=== PATIENT | male | born 1940 | race Caucasian/White ===

== ENCOUNTER 2016-05-27 17:37 | Inpatient (IN) | payer OTHER, BC, MEDICARE ==
[~2016-05-27] VITALS: Ht 172.7 cm; Wt 85.0 kg
[2016-05-27 17:38] VITALS: BP 128/68; PULSE 91; RESP 16; TEMP 99.3; O2SAT 98
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
[2016-05-27] MEDS ORDERED: SODIUM CHLOR 0.9% 1000 ML INJ 1,000 ML IV ONE ×2 (20:30→22:00)
[2016-05-27] MEDS ORDERED: VANCOMYCIN INJ 1,000 MG in SODIUM CHLOR 0.9% 250 ML INJ 250 ML IV ONE (20:30)
[2016-05-27] MEDS ORDERED: PIPERACIL-TAZO 3.375 GM PREMIX 50 ML IV ONE (20:30)
--- NOTE | 2016-05-27 20:30 | RADRPT ---
EXAM DATE/TIME: 05/27/2016 20:08 [facility] COMPARISON: No previous studies available for comparison. INDICATIONS : Fever. MEDICAL HISTORY : Myocardial infarction. SURGICAL HISTORY : Coronary artery stent. ENCOUNTER: Initial ACUITY: 1 week PAIN SCORE: 0/10 LOCATION: Bilateral chest FINDINGS: A single view of the chest demonstrates the lungs to be symmetrically aerated without evidence of mas s, infiltrate or effusion. The cardiomediastinal contours are unremarkable. Osseous structures are intact. CONCLUSION: No acute disease. Mir Suarez MD FACR on May 27, 2016 at 20:28 Board Certified Radiologist. This report was verified electronically.
[2016-05-27 20:50] LABS: AUTOMATED NEUTROPHIL # 10.9 TH/MM3 (1.8-7.7); BASOPHIL % 0.3 % (0.0-2.0); EOSINOPHIL % 0.2 % (0.0-4.0); HEMATOCRIT 38.6 % (39.0-51.0); LYMPH % 9.9 % (9.0-44.0); LYMPHOCYTE # 1.3 TH/MM3 (1.0-4.8); MEAN CELL VOLUME 73.2 FL (80.0-100.0); MEAN CORPUSCULAR HEMOGLOBIN 23.5 PG (27.0-34.0); MEAN CORPUSCULAR HGB CONC 32.1 % (32.0-36.0); MONO % 8.2 % (0.0-8.0); NEUT % 81.4 % (16.0-70.0); PLATELET COUNT 276 TH/MM3 (150-450); RED BLOOD COUNT 5.28 MIL/MM3 (4.50-5.90); RED CELL DISTRIBUTION WIDTH 16.9 % (11.6-17.2); WHITE BLOOD COUNT 13.4 TH/MM3 (4.0-11.0)
[2016-05-27 20:51] LABS: HEMO FLAGS AUTO DIFF
[2016-05-27 21:08] LABS: APTT (PATIENT) 27.4 SEC (24.3-30.1); PROTHROMBIN TIME - PATIENT 11.3 SEC (9.8-11.6)
[2016-05-27 21:11] LABS: ANION GAP 9 MEQ/L (5-15); AST (GOT) 24 U/L (15-37); BLOOD UREA NITROGEN 26 MG/DL (7-18); CHLORIDE 98 MEQ/L (98-107); GLOMERULAR FILTRATION RATE 37 ML/MIN (>89); MAGNESIUM 2.1 MG/DL (1.5-2.5); POTASSIUM 3.8 MEQ/L (3.5-5.1); SODIUM (NA) 134 MEQ/L (136-145)
[2016-05-27 21:14] LABS: ALKALINE PHOSPHATASE 98 U/L (45-117); ALT (GPT) 38 U/L (12-78); TOTAL BILIRUBIN ADULT 0.7 MG/DL (0.2-1.0)
[2016-05-27 21:21] LABS: OVALOCYTES 1+ (NORMAL); PLATELET ESTIMATE SMEAR NORMAL (NORMAL); PLATELET MORPHOLOGY NORMAL (NORMAL); SCAN/DIFF AUTO DIFF CONFIRMED
--- NOTE | 2016-05-27 21:58 | PD.CONS ---
HPI Service Urology Consult Requested By Reason for Consult Artificial urinary sphincter Primary Care Physician Unknown Diagnosis: History of Present Illness 76yo male with hx of prostate cancer s/p prostatectomy with artificial urinary sphincter in place now with fevers. Patient recently had a urinary sphincter placed in Mar 2016. He had been doing well until recently where he was evaluated by [facility] and found to have fevers and scrotal pain/ discomfort, at which point he was referred to [place] ED due to concern for possible implant infection. Patient recently had his sphincter activated a few weeks ago. Patient reports fevers at home with occasional blood in his urine. Denies any N/V. He is able to cycle the device well and provide a urine sample. As there was concern for possible infection of the implant his sphincter was deactivated and he was started on broad spectrum antibiotics. Review of Systems ROS Limitations: Clinical Condition Constitutional: COMPLAINS OF: Fever Endocrine: DENIES: Polyuria Eyes: DENIES: Blurred vision Ears, nose, mouth, throat: DENIES: Hearing loss Respiratory: DENIES: Cough Cardiovascular: DENIES: Chest pain Gastrointestinal: COMPLAINS OF: Abdominal pain Genitourinary: COMPLAINS OF: Hematuria Musculoskeletal: DENIES: Joint pain Integumentary: DENIES: Rash Hematologic/lymphatic: DENIES: Bruising Immunologic/allergic: DENIES: Eczema Neurologic: DENIES: Abnormal gait Psychiatric: DENIES: Anxiety Except as stated in HPI: all other systems reviewed are Neg Past Family Social History Past Medical History htn dm cad s/p stent- 2005 ckd- Dr Álvarez at [place] is his kidney prostate CA- diagnosed 2015, s/p prostectomy and lymph nodes removal- no chemo, no radiation seeds - DR REYNA- at [place] ([facility]) GERD Past Surgical History prostatectomy L3-L4 fusion rotator cuff sx Reported Medications Reported Meds & Active Scripts Active Reported Cozaar (Losartan Potassium) 25 Mg Tab 25 Mg PO DAILY Aspirin Low Dose (Aspirin) 81 Mg Chew 81 Mg DAILY Crestor (Rosuvastatin Calcium) 20 Mg Tab 20 Mg PO HS Glipizide 5 Mg Tab 2.5 Mg PO DAILY Take 30 minutes before a meal Metformin (Metformin HCl) 500 Mg Tab 500 Mg PO BIDPC With meals Allergies: Coded Allergies: No Known Allergies (Verified , 05/27/16) Active Ordered Medications Current Medications Medications (Trade) Dose Ordered Sig/Percy Route Start Time Stop Time Status Last Admin (NS 1000 ml Inj) 1,000 ml @ 100 mls/hr Q10H IV 05/27/16 20:00 05/28/16 08:42 (NS Flush) 2 ml UNSCH PRN IV FLUSH 05/27/16 22:15 (NS Flush) 2 ml BID IV FLUSH 05/28/16 09:00 Naloxone HCl 0.4 mg 0.4 mg UNSCH PRN IV 05/27/16 22:15 Pharmacy Profile Note 0 ml @ 0 mls/hr UNSCH OTHER 05/27/16 22:15 (Zosyn 2.25 Gm Premix) 50 ml @ 100 mls/hr Q6H IV 05/28/16 03:00 05/28/16 20:39 (D50w (Vial) Inj) 25 ml UNSCH PRN IV PUSH 05/28/16 02:30 (Glucagon Inj) 1 mg UNSCH PRN OTHER 05/28/16 02:30 Losartan Potassium 25 mg 25 mg DAILY PO 05/28/16 09:00 05/28/16 08:37 (Vancomycin Inj/ NS 500 ml Inj) 517.5 ml @ 250 mls/hr Q24H IV 05/28/16 12:00 05/28/16 12:31 Miscellaneous Information SPECIFIC LAB TO BE DRAWN:VANCOMYCIN TROUGH DATE TO... ONCE ONCE .XX 05/30/16 11:45 05/30/16 11:46 Family History mother and father with dm, htn younger brother with prostate ca Social History used to smoke , quit 1970s, never a heavy smoker social drinker lives with and grandson, still drives Physical Exam Vital Signs Date Time Temp Pulse Resp B/P Pulse Ox O2 Delivery O2 Flow Rate FiO2 05/27/16 19:59 79 14 97 Room Air 05/27/16 17:38 99.3 91 16 128/68 98 Physical Exam GENERAL: This is a well-nourished, well-developed patient, in no apparent distress. SKIN: No rashes, ecchymoses or lesions. Cool and dry. HEAD: Atraumatic. Normocephalic. EYES: Extraocular motions intact. No scleral icterus. No injection or drainage. ENT: Nose without bleeding, purulent drainage. Airway patent. NECK: Trachea midline. No JVD or lymphadenopathy. CARDIOVASCULAR: Normal pulses RESPIRATORY: nonlabored, equal chest rise GASTROINTESTINAL: Abdomen soft, non-tender, nondistended. : Bilateral descended testis, no masses, nontender palpable pump noted within the scrotum, Nontender cuff in place. No obvious erythema or clear evidence of infection noted MUSCULOSKELETAL: Extremities without clubbing, cyanosis, or edema. NEUROLOGICAL: Awake and alert. Motor and sensory grossly within normal limits. Normal speech. Lab results reviewed: Yes Laboratory Tests Test 05/27/16 20:25 White Blood Count 13.4 Red Blood Count 5.28 Hemoglobin 12.4 Hematocrit 38.6 Mean Corpuscular Volume 73.2 Mean Corpuscular Hemoglobin 23.5 Mean Corpuscular Hemoglobin 32.1 Concent Red Cell Distribution Width 16.9 Platelet Count 276 Mean Platelet Volume 8.3 Neutrophils (%) (Auto) 81.4 Lymphocytes (%) (Auto) 9.9 Monocytes (%) (Auto) 8.2 Eosinophils (%) (Auto) 0.2 Basophils (%) (Auto) 0.3 Neutrophils # (Auto) 10.9 Lymphocytes # (Auto) 1.3 Monocytes # (Auto) 1.1 Eosinophils # (Auto) 0.0 Basophils # (Auto) 0.0 CBC Comment AUTO DIFF Differential Comment AUTO DIFF CONFIRMED Platelet Estimate NORMAL Platelet Morphology Comment NORMAL Ovalocytes 1+ Prothrombin Time 11.3 Prothromb Time International 1.0 Ratio Activated Partial 27.4 Thromboplast Time Sodium Level 134 Potassium Level 3.8 Chloride Level 98 Carbon Dioxide Level 27.0 Anion Gap 9 Blood Urea Nitrogen 26 Creatinine 1.80 Estimat Glomerular Filtration 37 Rate Random Glucose 156 Lactic Acid Level 2.2 Calcium Level 9.0 Magnesium Level 2.1 Total Bilirubin 0.7 Aspartate Amino Transf 24 (AST/SGOT) Alanine Aminotransferase 38 (ALT/SGPT) Alkaline Phosphatase 98 C-Reactive Protein 11.00 Total Protein 8.2 Albumin 3.7 Lipase 111 Blood Type O POSITIVE Antibody Screen NEGATIVE Blood Bank Comment Date/Time Procedure Status Source Growth 05/27/16 20:25 Aerobic Blood Culture Received Blood Peripheral Pending 05/27/16 20:25 Anaerobic Blood Culture Received Blood Peripheral Pending Result Diagram: 05/27/16202405/27/162024 Personally reviewed images: Yes Imaging Last 72 hours Impressions Chest X-Ray 05/27/161999 Signed Impressions: Service Date/Time: Friday, May 27, 2016 20:08 - CONCLUSION: No acute disease. Mir Suarez MD FACR Pelvis CT 05/27/16 0000 Signed Impressions: Service Date/Time: Saturday, May 28, 2016 00:32 - CONCLUSION: 1. Diverticulosis without diverticulitis. 2. Penile prosthesis. 3. Umbilical hernia containing loops of small bowel without fundus regulation or obstruction. Naseem Gutiérrez MD Last Impressions Chest X-Ray 05/27/161999 Signed Impressions: Service Date/Time: Friday, May 27, 2016 20:08 - CONCLUSION: No acute disease. Mir Suarez MD FACR Assessment and Plan Problem List: (1) Urinary tract infection ICD Code: N39.0 Status: Acute (2) Sepsis ICD Code: A41.9 Status: Acute Assessment and Plan -Concern for possible sphincter infection vs erosion, however no obvious infection noted -Continue broad spectrum Abx -CT pelvis without any obvious abnormalities noted -Sphincter de-activated at bedside -Will follow closely Problem Qualifiers (1) Urinary tract infection: Qualified Code: N39.0 - Urinary tract infection without hematuria, site unspecified (2) Sepsis: Qualified Code: A41.9 - Sepsis, due to unspecified organism Ruddy Wheeler MD May 27, 2016 21:58
[2016-05-27] MEDS: SODIUM CHLOR 0.9% 1000 ML INJ 1,000 ML IV SCH (22:14)
[2016-05-27] MEDS ORDERED: SODIUM CHLORIDE 0.9% FLUSH 10 ML FLUSH IV FLUSH PRN (22:15)
[2016-05-27] MEDS ORDERED: NALOXONE HCL 0.4 MG/ML AMP IV PRN (22:15)
[2016-05-27] MEDS ORDERED: Vancomycin Consult Pharmacy 1 EA OTHER SCH (22:15)
[2016-05-27 22:40] LABS: LACTIC ACID GHOST NOT REPORTABLE
[2016-05-27] MEDS ORDERED: DIATRIZOATE MEGLUM/DIATRIZOATE SOD 9 ML CUP ONE (22:46)
[2016-05-27] MEDS ORDERED: ACETAMINOPHEN 325 MG TAB PO ONE (23:00)
[2016-05-27 23:12] LABS: BACTERIA, URINE RARE /hpf; BLOOD, URINE SMALL (NEG); COMMENT (UR) CULTURE INDICATED; CULTURE IF INDICATED CULTURE INDICATED; GLUCOSE,URINE NEG (NEG); KETONE, URINE NEG (NEG); MUCUS URINE FEW /lpf (OCC); NITRITE,URINE NEG (NEG); PH, URINE 5.5 (5.0-8.5); SQUAMOUS EPITHELIAL CELL URINE 1 /hpf (0-5); URINE COLOR YELLOW (YELLW/STRAW)
[2016-05-28] VITALS (9 sets, daily range): BP systolic 116–129; BP diastolic 59–68; PULSE 62–75; RESP 16–20; TEMP 97.8–99.8; O2SAT 95–99
--- NOTE | 2016-05-28 00:57 | RADRPT ---
EXAM DATE/TIME: 05/28/2016 00:32 [facility] COMPARISON: No previous studies available for comparison. INDICATIONS : Fever, post op artificial sphincter four days ago, rectal bleeding. ORAL CONTRAST: Prescribed oral contrast ingested. RADIATION DOSE: 13.57 CTDIvol (mGy) MEDICAL HISTORY : Cardiovascular disease. diabetes, hernia SURGICAL HISTORY : artificial sphincter ENCOUNTER: Initial ACUITY: 4 - 6 days PAIN SCALE: 8/10 LOCATION: pelvis TECHNIQUE: Volumetric scanning of the pelvis was performed. Using automated exposure control and adjustment of the mA and/or kV according to patient size, radiation dose was kept as low as reasonably achievable t o obtain optimal diagnostic quality images. FINDINGS: BOWEL/MESENTERY: Diverticulosis without diverticulitis. Small umbilical hernia containing loops of small bowel. No sig ns of strangulation or obstruction. BLADDER: There is no wall thickening or mass. RETROPERITONEUM: There is no aneurysm or lymphadenopathy. REPRODUCTIVE: Penile prosthesis noted. Postsurgical changes with prostatectomy. INGUINAL: There is no lymphadenopathy or hernia. MUSCULOSKELETAL: There are degenerative changes lower lumbar spine. CONCLUSION: 1. Diverticulosis without diverticulitis. 2. Penile prosthesis. 3. Umbilical hernia containing loops of small bowel without fundus regulation or obstruction. Naseem Gutiérrez MD on May 28, 2016 at 0:52 Board Certified Radiologist. This report was verified electronically.
[2016-05-28] MEDS ORDERED: PIPERACIL-TAZO 4.5 GM PREMIX 100 ML IV SCH (02:00)
--- NOTE | 2016-05-28 02:15 | HHI.HP ---
HPI Service [facility] Primary Care Physician Unknown Admission Diagnosis Post op infection, sepsis Diagnoses: Chief Complaint: Fever Travel History International Travel<30 Days: No Contact w/Intl Traveler <30 Da: No Traveled to Known Affected Are: No Sepsis Criteria Severe Sepsis (+one): Lactate >2 History of Present Illness History from patient, your physician for medication, and review of medical records. Patient reported that he came to the hospital because he was having fever for past one week. States he was also seen blood in his urine. He reports a urinary burning as well. Denies any cough/upper respiratory symptoms. Denies any nausea/vomiting/diarrhea/black stools or red stool. Denies any recent chest pain/shortness of breath/syncopal episodes. Patient reports that he has had prostatectomy previously for prostate cancer and had artificial sphincter placed on March 25, 2016. He reports this artificial sphincter was activated 2 weeks ago. He is a diabetic. He states the first week, he was quite asymptomatic. Only starting the second week he started having fever and urinary burning. He saw his urologist office today and was told to come to the hospital for suspected postop infection. Review of Systems Except as stated in HPI: all other systems reviewed are Neg Past Family Social History Past Medical History htn dm cad s/p stent- 2005 ckd- Dr Álvarez at [facility] is his kidney prostate CA- diagnosed 2015, s/p prostectomy and lymph nodes removal- no chemo, no radiation seeds - DR REYNA- at [facility] ([facility]) GERD Past Surgical History prostatectomy L3-L4 fusion rotator cuff sx Reported Medications per patient: metformin 500mg bid glipzide 2.5 mg once a day losartan 25mg once a day asa 81mg po daily crestor 20mg qhs Allergies: Coded Allergies: No Known Allergies (Verified , 05/27/16) Family History mother and father with dm, htn younger brother with prostate ca Social History used to smoke , quit 1970s, never a heavy smoker social drinker lives with and grandson, still drives Physical Exam Vital Signs Vital Signs Date Time Temp Pulse Resp B/P Pulse Ox O2 Delivery O2 Flow Rate FiO2 05/28/16 00:12 72 05/28/16 00:09 99.8 75 19 116/59 95 05/27/16 19:59 79 14 97 Room Air 05/27/16 17:38 99.3 91 16 128/68 98 Physical Exam GENERAL: This is a well-nourished, well-developed patient, in no apparent distress. SKIN: No rashes, ecchymoses or lesions. Cool and dry. HEAD: Atraumatic. Normocephalic. No temporal or scalp tenderness. EYES: No scleral icterus. No injection or drainage. ENT: Nose without bleeding, purulent drainage or septal hematoma. Airway patent. NECK: Trachea midline. No JVD . CARDIOVASCULAR: Regular rate and rhythm without murmurs, gallops, or rubs. RESPIRATORY: Clear to auscultation. Breath sounds equal bilaterally. No wheezes , rales, or rhonchi. GASTROINTESTINAL: Abdomen soft, non-tender, nondistended. No guarding. MUSCULOSKELETAL: Extremities without clubbing, cyanosis, or edema. No calf tenderness. NEUROLOGICAL: Awake and alert. Motor and sensory grossly within normal limits. Normal speech. Laboratory Laboratory Tests Test 05/27/16 05/27/16 20:25 22:59 White Blood Count 13.4 Red Blood Count 5.28 Hemoglobin 12.4 Hematocrit 38.6 Mean Corpuscular Volume 73.2 Mean Corpuscular Hemoglobin 23.5 Mean Corpuscular Hemoglobin 32.1 Concent Red Cell Distribution Width 16.9 Platelet Count 276 Mean Platelet Volume 8.3 Neutrophils (%) (Auto) 81.4 Lymphocytes (%) (Auto) 9.9 Monocytes (%) (Auto) 8.2 Eosinophils (%) (Auto) 0.2 Basophils (%) (Auto) 0.3 Neutrophils # (Auto) 10.9 Lymphocytes # (Auto) 1.3 Monocytes # (Auto) 1.1 Eosinophils # (Auto) 0.0 Basophils # (Auto) 0.0 CBC Comment AUTO DIFF Differential Comment AUTO DIFF CONFIRMED Platelet Estimate NORMAL Platelet Morphology Comment NORMAL Ovalocytes 1+ Prothrombin Time 11.3 Prothromb Time International 1.0 Ratio Activated Partial 27.4 Thromboplast Time Sodium Level 134 Potassium Level 3.8 Chloride Level 98 Carbon Dioxide Level 27.0 Anion Gap 9 Blood Urea Nitrogen 26 Creatinine 1.80 Estimat Glomerular Filtration 37 Rate Random Glucose 156 Lactic Acid Level 2.2 1.2 Calcium Level 9.0 Magnesium Level 2.1 Total Bilirubin 0.7 Aspartate Amino Transf 24 (AST/SGOT) Alanine Aminotransferase 38 (ALT/SGPT) Alkaline Phosphatase 98 C-Reactive Protein 11.00 Total Protein 8.2 Albumin 3.7 Lipase 111 Blood Type O POSITIVE Antibody Screen NEGATIVE Blood Bank Comment Urine Color YELLOW Urine Turbidity CLEAR Urine pH 5.5 Urine Specific [place] 1.018 Urine Protein 30 Urine Glucose (UA) NEG Urine Ketones NEG Urine Occult Blood SMALL Urine Nitrite NEG Urine Bilirubin NEG Urine Urobilinogen LESS THAN 2.0 Urine Leukocyte Esterase MOD Urine RBC 12 Urine WBC 21 Urine Squamous Epithelial 1 Cells Urine Bacteria RARE Urine Mucus FEW Microscopic Urinalysis Comment CULTURE INDICATED Date/Time Procedure Status Source Growth 05/27/16 22:59 Urine Culture Received Urine Random Urine Pending 05/27/16 20:25 Aerobic Blood Culture Received Blood Peripheral Pending 05/27/16 20:25 Anaerobic Blood Culture Received Blood Peripheral Pending Result Diagram: 05/27/16202405/27/162024 Imaging Last 48 hours Impressions Chest X-Ray 05/27/161999 Signed Impressions: Service Date/Time: Friday, May 27, 2016 20:08 - CONCLUSION: No acute disease. Mir Suarez MD FACR Pelvis CT 05/27/16 0000 Signed Impressions: Service Date/Time: Saturday, May 28, 2016 00:32 - CONCLUSION: 1. Diverticulosis without diverticulitis. 2. Penile prosthesis. 3. Umbilical hernia containing loops of small bowel without fundus regulation or obstruction. Naseem Gutiérrez MD Assessment and Plan Problem List: (1) Urinary tract infection ICD Code: N39.0 Status: Acute Assessment and Plan Impression: Postop fever UTI Renal insufficiencylikely chronic. Patient sees a stress test technician at [facility]. He does not know his baseline GFR though. Has long-standing hypertension/ diabetes. Leukocytosis with left shift Hematuriamild per description. Will follow-up. Likely from UTI and instrumentation. htn dm cad s/p stent- 2005 ckd- Dr Álvarez at [facility] is his kidney prostate CA- diagnosed 2015, s/p prostectomy and lymph nodes removal- no chemo, no radiation seeds - DR REYNA- at [facility] ([facility]) GERD Plan: Will follow-up urine culture results. Patient was evaluated by urologist in ER. His artificial sphincter was deactivated. We'll follow-up recommendations. CT pelvisreviewed personally. No evidence of abscess/diverticulitis. Patient was given vancomycin and Zosyn in ER. We'll continue same regimen given that he had recent instrumentation. We'll adjust antibiotics based on culture results. Hold oral hypoglycemics. We'll monitor fingersticks and cover with sliding scale coverage. Resume his other home meds. DVT prophylaxiswith SCD. Discussed Condition With Patient, ER physician, patient's nurse Problem Qualifiers (1) Urinary tract infection: Qualified Code: N39.0 - Urinary tract infection without hematuria, site unspecified Rico Rincon MD May 28, 2016 02:15
[2016-05-28] MEDS ORDERED: DEXTROSE 50% IN WATER 50 ML VIAL(D50) IV PUSH PRN (02:30)
[2016-05-28] MEDS ORDERED: GLUCAGON 1 MG/ML VIAL OTHER PRN (02:30)
[2016-05-28] MEDS: PIPERACIL-TAZO 2.25 GM PREMIX 50 ML IV SCH ×4 (03:02→20:39)
[2016-05-28] MEDS: SODIUM CHLOR 0.9% 1000 ML INJ 1,000 ML IV SCH ×2 (06:00→08:42)
[2016-05-28] MEDS: INSULIN ASPART SUPPLEMENTAL SCALE SQ SCH ×4 (06:17→20:43)
[2016-05-28 07:59] LABS: AUTOMATED NEUTROPHIL # 6.1 TH/MM3 (1.8-7.7); BASOPHIL % 0.3 % (0.0-2.0); EOSINOPHIL # 0.1 TH/MM3 (0-0.4); EOSINOPHIL % 1.5 % (0.0-4.0); LYMPH % 17.1 % (9.0-44.0); LYMPHOCYTE # 1.5 TH/MM3 (1.0-4.8); MEAN CELL VOLUME 72.2 FL (80.0-100.0); MEAN CORPUSCULAR HEMOGLOBIN 24.1 PG (27.0-34.0); MEAN CORPUSCULAR HGB CONC 33.4 % (32.0-36.0); MONO % 11.2 % (0.0-8.0); NEUT % 69.9 % (16.0-70.0); PLATELET COUNT 251 TH/MM3 (150-450); RED BLOOD COUNT 4.29 MIL/MM3 (4.50-5.90); RED CELL DISTRIBUTION WIDTH 17.2 % (11.6-17.2); WHITE BLOOD COUNT 8.7 TH/MM3 (4.0-11.0)
[2016-05-28 08:01] LABS: HEMO FLAGS AUTO DIFF
[2016-05-28] MEDS: LOSARTAN 25 MG TAB PO SCH (08:37)
[2016-05-28] MEDS: SODIUM CHLORIDE 0.9% FLUSH 10 ML FLUSH IV FLUSH SCH ×2 (08:40→20:40)
[2016-05-28 08:46] LABS: BICARBONATE 25.6 MEQ/L (21.0-32.0); POTASSIUM 3.5 MEQ/L (3.5-5.1)
[2016-05-28 08:49] LABS: BANDS 7 % (0-6); EOSINOPHILS 1 % (0-4); PLATELET ESTIMATE SMEAR NORMAL (NORMAL); PLATELET MORPHOLOGY NORMAL (NORMAL); POLYS (SEG NEUTROPHILS) 62 % (16-70); SCAN/DIFF FINAL DIFF MANUAL; WBC DIFF SAMPLE 100
[2016-05-28 08:50] LABS: OVALOCYTES 1+ (NORMAL)
[2016-05-28] MEDS ORDERED: METF500T PO (10:13)
[2016-05-28] MEDS ORDERED: ROSU20 PO (10:13)
[2016-05-28] MEDS ORDERED: GLIP5TAB8 PO (10:13)
[2016-05-28] MEDS ORDERED: COZA25TA PO (10:14)
[2016-05-28] MEDS ORDERED: ASPI81CH37 (10:14)
--- NOTE | 2016-05-28 11:41 | EKG ---
Date Performed: 05/27/2016 Time Performed: 21:09:41 PTAGE: 76 years EKG: Sinus rhythm NONSPECIFIC T-WAVE ABNORMALITY BORDERLINE ECG PREVIOUS TRACING : 10/30/2004 05.39 DOCTOR: Kit Adair Interpretating Date/Time 05/28/2016 11:36:40
[2016-05-28] MEDS: VANCOMYCIN INJ 1,750 MG in SODIUM CHLORID 0.9% 500 ML INJ 500 ML IV SCH (12:31)
--- NOTE | 2016-05-28 19:20 | HHI.PR ---
Addendum to Inpatient Note Addendum Reason: Additional Documentation Additional Information Patient states feels better. Denies cp/sob. no diarrhea. No further hematuria. Patient is AAOx3 nad, lungs clear, abdomen soft. Impression. 1. Sepsis secondary to urinary tract infection 2. Acute kidney injury on chronic kidney disease stage III 3. Hematuria - resolved 4. Diabetes mellitus. 5. Hypertension 6. Postop fever. 7. Low mcv anemia Sepsis present on admission, heart rate more than 90 and leukocytosis with a positive UA. Follow-up urinary blood cultures. Blood cultures negative 1. Urine culture pending. Continue broad-spectrum IV antibiotics with IV Zosyn IV vancomycin Urology following Continue SSI with insulin NovoLog and continue to monitor Accu-Cheks. Sugars seem to be stable. Continue Losartan for hypertension which seems to be stable. check iron studies, monitor hemoglobin which dropped down to 10k from 12k, check stool guaiac Jevon Condon MD May 28, 2016 19:20
[2016-05-29] VITALS (7 sets, daily range): BP systolic 136–176; BP diastolic 67–80; PULSE 60–65; RESP 16–20; TEMP 97.6–98.3; O2SAT 97–100
[2016-05-29] MEDS: SODIUM CHLOR 0.9% 1000 ML INJ 1,000 ML IV SCH ×3 (02:27→22:21)
[2016-05-29] MEDS: PIPERACIL-TAZO 2.25 GM PREMIX 50 ML IV SCH ×4 (02:30→22:21)
[2016-05-29 05:58] LABS: AUTOMATED NEUTROPHIL # 4.5 TH/MM3 (1.8-7.7); BASOPHIL % 0.4 % (0.0-2.0); EOSINOPHIL # 0.4 TH/MM3 (0-0.4); EOSINOPHIL % 5.5 % (0.0-4.0); HEMATOCRIT 30.8 % (39.0-51.0); LYMPH % 19.5 % (9.0-44.0); LYMPHOCYTE # 1.4 TH/MM3 (1.0-4.8); MEAN CELL VOLUME 72.4 FL (80.0-100.0); MEAN CORPUSCULAR HEMOGLOBIN 24.1 PG (27.0-34.0); MEAN CORPUSCULAR HGB CONC 33.3 % (32.0-36.0); MONO % 12.8 % (0.0-8.0); NEUT % 61.8 % (16.0-70.0); PLATELET COUNT 267 TH/MM3 (150-450); RED BLOOD COUNT 4.26 MIL/MM3 (4.50-5.90); RED CELL DISTRIBUTION WIDTH 16.9 % (11.6-17.2); WHITE BLOOD COUNT 7.2 TH/MM3 (4.0-11.0)
[2016-05-29 06:17] LABS: HEMO FLAGS AUTO DIFF
[2016-05-29 06:19] LABS: ALKALINE PHOSPHATASE 74 U/L (45-117); ALT (GPT) 38 U/L (12-78); ANION GAP 9 MEQ/L (5-15); AST (GOT) 26 U/L (15-37); BICARBONATE 25.6 MEQ/L (21.0-32.0); BLOOD UREA NITROGEN 21 MG/DL (7-18); CHLORIDE 106 MEQ/L (98-107); FERRITIN 104 NG/ML (26-388); GLOMERULAR FILTRATION RATE 50 ML/MIN (>89); MAGNESIUM 2.1 MG/DL (1.5-2.5); POTASSIUM 3.7 MEQ/L (3.5-5.1); SODIUM (NA) 141 MEQ/L (136-145); TOTAL BILIRUBIN ADULT 0.5 MG/DL (0.2-1.0); TRANSFERRIN IRON PROFILE 222 MG/DL (200-360)
[2016-05-29] MEDS: INSULIN ASPART SUPPLEMENTAL SCALE SQ SCH ×4 (06:35→22:23)
[2016-05-29 07:42] LABS: OVALOCYTES 1+ (NORMAL); PLATELET ESTIMATE SMEAR NORMAL (NORMAL); PLATELET MORPHOLOGY NORMAL (NORMAL); SCAN/DIFF AUTO DIFF CONFIRMED
--- NOTE | 2016-05-29 08:25 | HHI.PR ---
Subjective Remarks Follow up for complicated UTI, fevers, hematuria. The patient has been able to urinate but experiences pressure and still feels he has to force it. Denies any fevers/chills overnight. Denies abdominal pain. No further hematuria. He has no other medical complaints at this time. The patient had artificial sphincter placed 03/[address] Carlin, then activated on 05/13, now deactivated by Dr. Wheeler. Objective Vitals Vital Signs Date Time Temp Pulse Resp B/P Pulse Ox O2 Delivery O2 Flow Rate FiO2 05/29/16 07:32 97.9 65 16 176/80 99 05/29/16 03:58 97.6 60 20 149/72 98 05/29/16 00:44 98.3 64 18 145/70 99 05/28/16 20:00 66 05/28/16 19:33 98.2 68 18 122/63 98 05/28/16 15:29 98.6 67 20 120/64 98 05/28/16 11:31 97.8 69 18 123/68 98 I/O 05/28/16 05/28/16 05/28/16 05/29/16 05/29/16 05/29/16 07:00 15:00 23:00 07:00 15:00 23:00 Intake Total 100 ml 200 ml Output Total 600 ml 322 ml Balance -500 ml 200 ml -322 ml Intake IV Total 100 ml 200 ml Output Urine Total 600 ml 322 ml Result Diagram: 05/29/16 0516 05/29/16 0516 Imaging Last Impressions Chest X-Ray 05/27/161999 Signed Impressions: Service Date/Time: Friday, May 27, 2016 20:08 - CONCLUSION: No acute disease. Mir Suarez MD FACR Pelvis CT 05/27/16 0000 Signed Impressions: Service Date/Time: Saturday, May 28, 2016 00:32 - CONCLUSION: 1. Diverticulosis without diverticulitis. 2. Penile prosthesis. 3. Umbilical hernia containing loops of small bowel without fundus regulation or obstruction. Naseem Gutiérrez MD Objective Remarks GENERAL: Well-nourished, well-developed male patient in [facility]. SKIN: Warm and dry. No rash. HEENT: Normocephalic. Atraumatic. Pupils equal and round. Mucous membranes pink and moist. NECK: Supple. Trachea midline. CARDIOVASCULAR: Regular rate and rhythm. S1, S2 noted. No murmur appreciated. RESPIRATORY: No accessory muscle use. Clear to auscultation. Breath sounds equal bilaterally. GASTROINTESTINAL: Abdomen soft, non-tender, nondistended. Normoactive bowel sounds x4. GENITOURINARY: internal artificial sphincter device in place. MUSCULOSKELETAL: No obvious deformities. Extremities without clubbing, cyanosis , or edema. NEUROLOGICAL: Awake and alert. No obvious cranial nerve deficits. Motor grossly within normal limits. Normal speech. PSYCHIATRIC: Appropriate mood and affect; insight and judgment normal. Medications and IVs Current Medications Medications (Trade) Dose Ordered Sig/Percy Route Start Time Stop Time Status Last Admin (NS 1000 ml Inj) 1,000 ml @ 100 mls/hr Q10H IV 05/27/16 20:00 05/29/16 02:27 (NS Flush) 2 ml UNSCH PRN IV FLUSH 05/27/16 22:15 (NS Flush) 2 ml BID IV FLUSH 05/28/16 09:00 Naloxone HCl 0.4 mg 0.4 mg UNSCH PRN IV 05/27/16 22:15 Pharmacy Profile Note 0 ml @ 0 mls/hr UNSCH OTHER 05/27/16 22:15 (Zosyn 2.25 Gm Premix) 50 ml @ 100 mls/hr Q6H IV 05/28/16 03:00 05/29/16 02:30 (D50w (Vial) Inj) 25 ml UNSCH PRN IV PUSH 05/28/16 02:30 (Glucagon Inj) 1 mg UNSCH PRN OTHER 05/28/16 02:30 Losartan Potassium 25 mg 25 mg DAILY PO 05/28/16 09:00 05/28/16 08:37 (Vancomycin Inj/ NS 500 ml Inj) 517.5 ml @ 250 mls/hr Q24H IV 05/28/16 12:00 05/28/16 12:31 Miscellaneous Information SPECIFIC LAB TO BE DRAWN:VANCOMYCIN TROUGH DATE TO... ONCE ONCE .XX 05/30/16 11:45 05/30/16 11:46 Urinary Catheter: No Vascular Central Line Catheter: No A/P Problem List: (1) Urinary tract infection ICD Code: N39.0 Status: Acute Assessment and Plan 76-year-old male with history of diabetes, hypertension, CKD, GERD, CAD with stent, prostate cancer s/p prostatectomy, lymph node resection, artificial sphincter placement, presents with dysuria, fever 1 week and hematuria. Sepsis secondary to Complicated UTI: +leukocytosis WBC 13.4K, tachycardia HR 90s. with MICHELLE and artificial sphincter placed 2/ by Dr. Carlin. Continue broad- spectrum antibiotics with IV Zosyn, IV vancomycin. Urine culture with gram positive davonte. Blood cultures with NGTD. Urologist Dr. Carlin following. Infectious disease consulted for antibiotic recommendations. Acute kidney injury on chronic kidney disease stage III: likely secondary to urinary retention with device. Given IVF. Artificial sphincter deactivated by urology. Renal function improving, Cr 1.38. Hematuria: UA with small occult blood. Currently hematuria resolved. Monitor. Diabetes mellitus: Continue Accu-Cheks and cover with SSI. Blood glucose fairly well controlled. Hypertension: Continue Losartan for hypertension which seems to be stable. Microcytic anemia: iron studies consistent with iron deficiency. Monitor hemoglobin, dropped from 12.4 --> 10.2, likely hemodilutional with IVF. Check stool guaiac. Outpatient f/up with GI if hemoccult positive. DVT Prophylaxis: SCDs Written by Nadya Peña, acting as scribe for Dr. Martinez on 05/29/16 at 08:19. All or portions of this note were transcribed by DWAIN Ro. I , Dr. Doroteo Martinez personally performed the history, physical exam, and medical decision making; and confirmed the accuracy of the information in the transcribed note. Authenticated by Dr. Doroteo Martinez on 05/30/16 at 00:05. Discharge Planning Possible discharge today after antibiotic recommendations by ID. Outpatient f/ up with urology. Repeat BMP in 1 week. Problem Qualifiers (1) Urinary tract infection: Qualified Code: N39.0 - Urinary tract infection without hematuria, site unspecified Nadya Peña PA-C May 29, 2016 08:25 Andres Martinez DO May 30, 2016 00:05
[2016-05-29] MEDS: SODIUM CHLORIDE 0.9% FLUSH 10 ML FLUSH IV FLUSH SCH ×2 (08:27→22:21)
[2016-05-29] MEDS: LOSARTAN 25 MG TAB PO SCH (08:27)
--- NOTE | 2016-05-29 11:09 | HHI.PR ---
Subjective Patient symptoms today feel much better, no longer febrile Objective Vital Signs Vital Signs Date Time Temp Pulse Resp B/P Pulse Ox O2 Delivery O2 Flow Rate FiO2 05/29/16 07:32 97.9 65 16 176/80 99 05/29/16 03:58 97.6 60 20 149/72 98 05/29/16 00:44 98.3 64 18 145/70 99 05/28/16 20:00 66 05/28/16 19:33 98.2 68 18 122/63 98 05/28/16 15:29 98.6 67 20 120/64 98 05/28/16 11:31 97.8 69 18 123/68 98 Intake & Output 05/29/16 05/29/16 07:00 19:00 Intake Total 200 ml Output Total 322 ml Balance -122 ml Intake IV Total 200 ml Output Urine Total 322 ml Result Diagram: 05/29/1651505/29/1616 Objective Remarks AUS cycled several times no evidence of erythema, induration, tenderness I don' t think the AUS is infected but could be eroded into the urethra -- won't know until a cysto is done and i don't want to do that until he has cleared this UTI Medications and IVs Current Medications Medications (Trade) Dose Ordered Sig/Percy Route Start Time Stop Time Status Last Admin (NS 1000 ml Inj) 1,000 ml @ 100 mls/hr Q10H IV 05/27/16 20:00 05/29/16 02:27 (NS Flush) 2 ml UNSCH PRN IV FLUSH 05/27/16 22:15 (NS Flush) 2 ml BID IV FLUSH 05/28/16 09:00 Naloxone HCl 0.4 mg 0.4 mg UNSCH PRN IV 05/27/16 22:15 Pharmacy Profile Note 0 ml @ 0 mls/hr UNSCH OTHER 05/27/16 22:15 (Zosyn 2.25 Gm Premix) 50 ml @ 100 mls/hr Q6H IV 05/28/16 03:00 05/29/16 08:27 (D50w (Vial) Inj) 25 ml UNSCH PRN IV PUSH 05/28/16 02:30 (Glucagon Inj) 1 mg UNSCH PRN OTHER 05/28/16 02:30 Losartan Potassium 25 mg 25 mg DAILY PO 05/28/16 09:00 05/29/16 08:27 (Vancomycin Inj/ NS 500 ml Inj) 517.5 ml @ 250 mls/hr Q24H IV 05/28/16 12:00 05/28/16 12:31 Miscellaneous Information SPECIFIC LAB TO BE DRAWN:VANCOMYCIN TROUGH DATE TO... ONCE ONCE .XX 05/30/16 11:45 05/30/16 11:46 Assessment and Plan Problem List: (1) Urinary tract infection ICD Code: N39.0 Status: Acute (2) Sepsis ICD Code: A41.9 Status: Acute Assessment and Plan much improved will ask for ID help to suggest appropriate antibiotic therapy upon d/c for d/c in next 24/48 hours Problem Qualifiers (1) Urinary tract infection: Qualified Code: N39.0 - Urinary tract infection without hematuria, site unspecified (2) Sepsis: Qualified Code: A41.9 - Sepsis, due to unspecified organism Bishop Carlin MD May 29, 2016 11:09
[2016-05-29] MEDS: VANCOMYCIN INJ 1,750 MG in SODIUM CHLORID 0.9% 500 ML INJ 500 ML IV SCH (13:28)
--- NOTE | 2016-05-29 13:58 | PD.CONS ---
History of Present Illness Service Infectious disease Consult Requested By Dr Wheeler Reason for Consult Evaluate for possible infected artificial urinary sphincter Primary Care Physician Unknown Diagnoses: History of Present Illness Patient seen and examined. Records reviewed. Patient is a 76-year-old male, with history of prostate cancer, had undergone prostatectomy, developed urinary incontinence, and he underwent placement of an artificial urinary sphincter last March 2016. About 2 weeks ago, he had activation of the sphincter, and he was doing well up until 5 days ago, when he started feeling some discomfort in his suprapubic region, as well as some burning in the beginning of his urination. Once she started voiding, the burning goes away. He also started having fever and chills and shaking. He had noted some occasional blood in his urine. He denies any nausea or vomiting , or any back pain. The urinary sphincter has now been deactivated. Patient since admission has not had any fever or chills. His initial white count was 13 ,000 and that has improved. Patient's current problem is now he is having difficulty urinating. He would have a suprapubic fullness, and he would have to strain to make the urine come out. His initial urinalysis showed some mild pyuria. Urine culture showing less than 10,000 CFU of some gram-positive davonte. His initial creatinine was up to 1.8, and it's down to 1.3. Pelvic CT did not show any significant abnormality. Infectious disease consultation has been requested to evaluate the patient for possible infected artificial urinary sphincter.. Review of Systems Constitutional: COMPLAINS OF: Fever, Chills Eyes: DENIES: Eye pain Ears, nose, mouth, throat: DENIES: Nasal discharge, Oral lesions, Throat pain, Ear Pain, Sinus Pain Respiratory: DENIES: Cough, Shortness of breath Cardiovascular: DENIES: Chest pain, Palpitations Gastrointestinal: COMPLAINS OF: Abdominal pain, DENIES: Diarrhea, Nausea, Vomiting, Difficulty Swallowing Genitourinary: COMPLAINS OF: Hematuria, Dysuria Musculoskeletal: DENIES: Joint pain, Muscle aches, Joint Swelling Integumentary: DENIES: Pruritus, Rash Hematologic/lymphatic: DENIES: Bruising Immunologic/allergic: DENIES: Urticaria Neurologic: DENIES: Headache Psychiatric: DENIES: Anxiety, Hallucinations Past Family Social History Allergies: Coded Allergies: No Known Allergies (Verified , 4/10/17) Past Medical History Hypertension Diabetes CAD S/P stent- 2006 Chronic kidney disease Prostate CA- diagnosed 2016 GERD Past Surgical History S/P prostatectomy L3-L4 fusion rotator cuff sx S/P urethral sphincter surgery Active Ordered Medications Insulin Cozaar Zosyn Vancomycin Social History Used to smoke , quit 1970s Social drinker No illicit drugs lives with and grandson, still drives Physical Exam Vital Signs Vital Signs Date Time Temp Pulse Resp B/P Pulse Ox O2 Delivery O2 Flow Rate FiO2 05/29/16 11:35 97.8 62 18 136/72 98 05/29/16 07:32 97.9 65 16 176/80 99 05/29/16 03:58 97.6 60 20 149/72 98 05/29/16 00:44 98.3 64 18 145/70 99 05/28/16 20:00 66 05/28/16 19:33 98.2 68 18 122/63 98 05/28/16 15:29 98.6 67 20 120/64 98 Physical Exam GENERAL: This is a well-nourished, well-developed male, awake and alert, in no apparent distress. SKIN: Warm and moist. No generalized rash or ecchymosis. HEAD: Atraumatic. Normocephalic. No temporal or scalp tenderness. EYES: Ruby conjunctivae. Pupils equal round and reactive. Extraocular motions intact. No scleral icterus. No injection or drainage. ENT: Nose without bleeding, or purulent drainage. Moist oral mucosa. Throat without erythema, or exudate. Uvula midline. Airway patent. NECK: Trachea midline. No JVD or lymphadenopathy. Supple, nontender, no meningeal signs. CARDIOVASCULAR: Regular rate and rhythm without murmurs, gallops, or rubs. RESPIRATORY: Clear to auscultation. Breath sounds equal bilaterally. No wheezes , rales, or rhonchi. GASTROINTESTINAL: Abdomen soft, nondistended, with mild tenderness in the suprapubic region.. No hepato-splenomegaly, or palpable masses. No guarding. No rebound. Bowel sounds are present and normoactive. MUSCULOSKELETAL: Extremities without clubbing, cyanosis, or edema. No joint tenderness, effusion, or edema noted. No calf tenderness. Negative Homans sign bilaterally. NEUROLOGICAL: Awake and alert. Cranial nerves II through XII intact. Motor and sensory grossly within normal limits. Five out of 5 muscle strength in all muscle groups. Normal speech. PSYCH: Normal affect, calmm and cooperative LINE: PIV with no evidence of infection : No redness, swelling or induration in penis or scrotum. The pump, and tubing and reservoir are all unremarkable with no tenderness or redness. Laboratory Laboratory Tests Test 05/29/16 05:16 White Blood Count 7.2 Red Blood Count 4.26 Hemoglobin 10.2 Hematocrit 30.8 Mean Corpuscular Volume 72.4 Mean Corpuscular Hemoglobin 24.1 Mean Corpuscular Hemoglobin 33.3 Concent Red Cell Distribution Width 16.9 Platelet Count 267 Mean Platelet Volume 8.0 Neutrophils (%) (Auto) 61.8 Lymphocytes (%) (Auto) 19.5 Monocytes (%) (Auto) 12.8 Eosinophils (%) (Auto) 5.5 Basophils (%) (Auto) 0.4 Neutrophils # (Auto) 4.5 Lymphocytes # (Auto) 1.4 Monocytes # (Auto) 0.9 Eosinophils # (Auto) 0.4 Basophils # (Auto) 0.0 CBC Comment AUTO DIFF Differential Comment AUTO DIFF CONFIRMED Platelet Estimate NORMAL Platelet Morphology Comment NORMAL Ovalocytes 1+ Sodium Level 141 Potassium Level 3.7 Chloride Level 106 Carbon Dioxide Level 25.6 Anion Gap 9 Blood Urea Nitrogen 21 Creatinine 1.38 Estimat Glomerular Filtration 50 Rate Random Glucose 126 Calcium Level 8.3 Phosphorus Level 2.1 Magnesium Level 2.1 Iron Level 19 Total Iron Binding Capacity 311 Percent Iron Saturation 6.1 Ferritin 104 Total Bilirubin 0.5 Aspartate Amino Transf 26 (AST/SGOT) Alanine Aminotransferase 38 (ALT/SGPT) Alkaline Phosphatase 74 Total Protein 6.4 Albumin 2.7 Date/Time Procedure Status Source Growth 05/27/16 22:59 Urine Culture - Final Complete Urine Random Urine <10,000 CFU/ML GRAM POSITIVE DAVONTE 05/27/16 20:25 Aerobic Blood Culture - Preliminary Resulted Blood Peripheral NO GROWTH IN 2 DAYS 05/27/16 20:25 Anaerobic Blood Culture - Preliminary Resulted Blood Peripheral NO GROWTH IN 2 DAYS Result Diagram: 05/29/1651505/29/1616 Imaging RADIOLOGY STUDIES/FILMS REVIEWED Chest X-Ray 05/27/161999 Signed Impressions: Service Date/Time: Friday, May 27, 2016 20:08 - CONCLUSION: No acute disease. Mir Suarez MD FACR Pelvis CT 05/27/16 0000 Signed Impressions: Service Date/Time: Saturday, May 28, 2016 00:32 - CONCLUSION: 1. Diverticulosis without diverticulitis. 2. Penile prosthesis. 3. Umbilical hernia containing loops of small bowel without fundus regulation or obstruction. Naseem Gutiérrez MD Assessment and Plan Assessment and Plan IMPRESSION Sepsis on admission due to source - he did have some mild pyuria - currently no obvious evidence of infection on exam, ?certainly is the valve - he is now having some retention problem, and concern is edema around the valve - his fevers and chills and leukocytosis have all resolved CKD, worsened by infection, improving RECOMMENDATION Stop vancomycin Continue Zosyn Repeat urinalysis and culture Will get a bladder scan, to check for postvoid residual Monitor his symptoms If urinary retention continues, may need to have an earlier cystoscopy to further evaluate this problem I will follow along with you. Thank you for this consultation Discussed Condition With Explained plan to the patient and Answered all their questions Adilene Vera MD May 29, 2016 13:58
[2016-05-29 16:38] LABS: BACTERIA, URINE RARE /hpf; BLOOD, URINE NEG (NEG); COMMENT (UR) CULT NOT INDICATED; CULTURE IF INDICATED CULT NOT INDICATED; GLUCOSE,URINE 150 mg/dL (NEG); KETONE, URINE NEG (NEG); MUCUS URINE FEW /lpf (OCC); NITRITE,URINE NEG (NEG); PH, URINE 5.5 (5.0-8.5); SQUAMOUS EPITHELIAL CELL URINE <1 /hpf (0-5); URINE COLOR YELLOW (YELLW/STRAW)
[2016-05-30] MEDS: PIPERACIL-TAZO 2.25 GM PREMIX 50 ML IV SCH ×4 (03:00→20:38)
[2016-05-30 04:34] LABS: AUTOMATED NEUTROPHIL # 4.9 TH/MM3 (1.8-7.7); BASOPHIL % 0.4 % (0.0-2.0); EOSINOPHIL # 0.4 TH/MM3 (0-0.4); EOSINOPHIL % 5.2 % (0.0-4.0); HEMATOCRIT 31.3 % (39.0-51.0); LYMPH % 20.8 % (9.0-44.0); LYMPHOCYTE # 1.6 TH/MM3 (1.0-4.8); MEAN CELL VOLUME 72.8 FL (80.0-100.0); MEAN CORPUSCULAR HEMOGLOBIN 24.1 PG (27.0-34.0); MEAN CORPUSCULAR HGB CONC 33.2 % (32.0-36.0); MONO % 10.6 % (0.0-8.0); PLATELET COUNT 281 TH/MM3 (150-450); RED CELL DISTRIBUTION WIDTH 16.7 % (11.6-17.2); WHITE BLOOD COUNT 7.8 TH/MM3 (4.0-11.0)
[2016-05-30 04:51] LABS: BICARBONATE 25.9 MEQ/L (21.0-32.0); POTASSIUM 3.9 MEQ/L (3.5-5.1)
[2016-05-30 04:57] VITALS: BP 153/73; PULSE 58; RESP 18; TEMP 98.2; O2SAT 98
[2016-05-30 05:08] LABS: HEMO FLAGS AUTO DIFF
[2016-05-30] MEDS: INSULIN ASPART SUPPLEMENTAL SCALE SQ SCH ×4 (07:00→20:38)
[2016-05-30 07:07] LABS: OVALOCYTES 1+ (NORMAL); SCAN/DIFF AUTO DIFF CONFIRMED
[2016-05-30 07:43] VITALS: BP 188/84; PULSE 55; RESP 22; TEMP 97.5; O2SAT 97
--- NOTE | 2016-05-30 07:54 | HHI.PR ---
Subjective Remarks Follow up for complicated UTI, fevers, hematuria. The patient reports continued urinary retention and suprapubic pressure just prior, during, and immediately after urination. Currently he has been standing trying to urinate for over 10 minutes now. Denies any burning with urination. Denies any more fevers. Denies any hematuria. He has no other medical complaints at this time. Objective Vitals Vital Signs Date Time Temp Pulse Resp B/P Pulse Ox O2 Delivery O2 Flow Rate FiO2 05/30/16 07:43 97.5 55 22 188/84 97 05/30/16 04:57 98.2 58 18 153/73 98 05/29/16 23:52 98.2 62 18 165/78 97 05/29/16 19:14 97.6 60 20 166/78 99 05/29/16 15:16 97.7 61 20 140/67 100 05/29/16 11:35 97.8 62 18 136/72 98 I/O 05/29/16 05/29/16 05/29/16 05/30/16 05/30/16 05/30/16 07:00 15:00 23:00 07:00 15:00 23:00 Output Total 322 ml 4 ml Balance -322 ml -4 ml Output Urine Total 322 ml 4 ml Bladder Scan Volume Amount 230 ml # Bowel Movements 0 Result Diagram: 05/30/167 05/30/167 Imaging Last Impressions Chest X-Ray 05/27/161999 Signed Impressions: Service Date/Time: Friday, May 27, 2016 20:08 - CONCLUSION: No acute disease. Mir Suarez MD FACR Pelvis CT 05/27/16 0000 Signed Impressions: Service Date/Time: Saturday, May 28, 2016 00:32 - CONCLUSION: 1. Diverticulosis without diverticulitis. 2. Penile prosthesis. 3. Umbilical hernia containing loops of small bowel without fundus regulation or obstruction. Naseem Gutiérrez MD Objective Remarks GENERAL: Well-nourished, well-developed male patient in NAD. SKIN: Warm and dry. No rash. HEENT: Normocephalic. Atraumatic. Pupils equal and round. Mucous membranes pink and moist. NECK: Supple. Trachea midline. CARDIOVASCULAR: Regular rate and rhythm. S1, S2 noted. No murmur appreciated. RESPIRATORY: No accessory muscle use. Clear to auscultation. Breath sounds equal bilaterally. GASTROINTESTINAL: Abdomen soft, non-tender, nondistended. Normoactive bowel sounds x4. GENITOURINARY: internal artificial sphincter device in place. MUSCULOSKELETAL: No obvious deformities. Extremities without clubbing, cyanosis , or edema. NEUROLOGICAL: Awake and alert. No obvious cranial nerve deficits. Motor grossly within normal limits. Normal speech. PSYCHIATRIC: Appropriate mood and affect; insight and judgment normal. Medications and IVs Current Medications Medications (Trade) Dose Ordered Sig/Percy Route Start Time Stop Time Status Last Admin (NS 1000 ml Inj) 1,000 ml @ 100 mls/hr Q10H IV 05/27/16 20:00 05/29/16 22:21 (NS Flush) 2 ml UNSCH PRN IV FLUSH 05/27/16 22:15 (NS Flush) 2 ml BID IV FLUSH 05/28/16 09:00 05/29/16 22:21 Naloxone HCl 0.4 mg 0.4 mg UNSCH PRN IV 05/27/16 22:15 (Zosyn 2.25 Gm Premix) 50 ml @ 100 mls/hr Q6H IV 05/28/16 03:00 05/29/16 22:21 (D50w (Vial) Inj) 25 ml UNSCH PRN IV PUSH 05/28/16 02:30 (Glucagon Inj) 1 mg UNSCH PRN OTHER 05/28/16 02:30 (Cozaar) 25 mg DAILY PO 05/28/16 09:00 05/29/16 08:27 (Glucotrol) 2.5 mg DAILY PO 05/30/16 09:00 UNV Non-Formulary Medication 20 mg HS PO 05/30/16 21:00 UNV Urinary Catheter: No A/P Problem List: (1) Urinary tract infection ICD Code: N39.0 Status: Acute Assessment and Plan 76-year-old male with history of diabetes, hypertension, CKD, GERD, CAD with stent, prostate cancer s/p prostatectomy, lymph node resection, artificial sphincter placement, presents with dysuria, fever 1 week and hematuria. Sepsis secondary to Complicated UTI: +leukocytosis WBC 13.4K, tachycardia HR 90s , with MICHELLE and artificial sphincter placed 03/[address] Carlin, then activated , patient was doing well for 1 week, then developed fevers and retention. Continue IV Zosyn, discontinue IV vancomycin. Urine culture with gram positive davonte. Blood cultures with NGTD. Urologist Dr. Raegan zepeda. Infectious disease consulted for outpatient antibiotic recommendations. Urinary Retention: Patient still with pressure pain, urinary retention, difficulty urinating. Post void bladder scan residual 230ml. Artificial sphincter currently deactivated therefore patient should be able to urinate more freely. Urology on board as above. Consider cystoscopy. Acute kidney injury on chronic kidney disease stage III: likely secondary to urinary retention with device. Given IVF. Renal function improving, Cr 1.26. Avoid nephrotoxins. Hematuria: UA with small occult blood. Currently hematuria resolved. Monitor. Diabetes mellitus: Continue Accu-Cheks and cover with SSI. Continue patient's glipizide. Blood glucose fairly well controlled. Hypertension: Continue Losartan for hypertension which seems to be stable. Microcytic anemia: iron studies consistent with iron deficiency. Monitor hemoglobin, dropped from 12.4 --> 10.2, likely hemodilutional with IVF. Hemoccult negative. CBC stable. DVT Prophylaxis: SCDs Written by Nadya Peña, acting as scribe for Haylee on 05/30/16 at 15:15. Discharge Planning Possible discharge when cleared by urologist and after antibiotic recommendations by ID. Attending Statement This note was transcribed by scribe Nadya Peña. I, Dr. Sheri Leach personally performed the history, physical exam, and medical decision making; and confirmed the accuracy of the information in the transcribed note. Authenticated by Dr. Sheri Leach on 05/30/16 at 20:13. Problem Qualifiers (1) Urinary tract infection: Qualified Code: N39.0 - Urinary tract infection without hematuria, site unspecified Nadya Peña PA-C May 30, 2016 07:54 Sheri Leach MD May 30, 2016 20:13
[2016-05-30] MEDS: LOSARTAN 25 MG TAB PO SCH (08:54)
[2016-05-30] MEDS: SODIUM CHLOR 0.9% 1000 ML INJ 1,000 ML IV SCH ×2 (08:55→18:00)
[2016-05-30] MEDS: glipiZIDE 5 MG TAB PO SCH (09:56)
[2016-05-30] MEDS: SODIUM CHLORIDE 0.9% FLUSH 10 ML FLUSH IV FLUSH SCH ×2 (10:00→20:39)
[2016-05-30 11:45] VITALS: BP 151/74; PULSE 55; RESP 20; TEMP 97.9; O2SAT 99
[2016-05-30] MEDS ORDERED: PHARMACY ORDERED LAB ONE (11:45)
[2016-05-30 14:13] VITALS: BP 144/70; PULSE 60; RESP 20; TEMP 97.4; O2SAT 98
--- NOTE | 2016-05-30 18:04 | HHI.PR ---
Subjective Remarks feels fine but c/o sense of pressure with voiding Objective Vital Signs Date Time Temp Pulse Resp B/P Pulse Ox O2 Delivery O2 Flow Rate FiO2 05/30/16 14:13 97.4 60 20 144/70 98 05/30/16 11:45 97.9 55 20 151/74 99 05/30/16 07:43 97.5 55 22 188/84 97 05/30/16 04:57 98.2 58 18 153/73 98 05/29/16 23:52 98.2 62 18 165/78 97 05/29/16 19:14 97.6 60 20 166/78 99 I/O 05/29/16 05/29/16 05/29/16 05/30/16 05/30/16 05/30/16 07:00 15:00 23:00 07:00 15:00 23:00 Intake Total 1760 ml Output Total 322 ml 4 ml Balance -322 ml -4 ml 1760 ml Intake Oral 960 ml IV Total 800 ml Output Urine Total 322 ml 4 ml Bladder Scan Volume Amount 230 ml # Voids 4 # Bowel Movements 0 Result Diagram: 05/30/16 0357 05/30/16 0357 Objective Remarks his PVR is running about 160-230 but it is clear no fever, tolerating a diet Assessment and Plan Assessment and Plan Mal functioning AUS Febrile UTI, resolving Plan: Will discuss with ID re: recommendation for po antibiotics upon d/c. Will d/c from [facility] [place] [place] in the morning will bring to the office and do a cysto as an opt will make further treatment decisions based on cysto findings in the morning (may have an eroded cuff, but this would be awfully soon for that to have happened.) will write antibiotic rx from the office after cysto Bishop Carlin MD May 30, 2016 18:04
[2016-05-30 19:41] VITALS: BP 154/73; PULSE 60; RESP 20; TEMP 98.4; O2SAT 93
[2016-05-30] MEDS ORDERED: ATORVASTATIN 40 MG TAB PO SCH (21:00)
[2016-05-31 00:50] VITALS: BP 156/71; PULSE 56; RESP 20; TEMP 98.5; O2SAT 99
[2016-05-31] MEDS: PIPERACIL-TAZO 2.25 GM PREMIX 50 ML IV SCH ×2 (02:44→08:15)
[2016-05-31] MEDS: SODIUM CHLOR 0.9% 1000 ML INJ 1,000 ML IV SCH (03:36)
[2016-05-31 04:44] VITALS: BP 163/77; PULSE 63; RESP 18; TEMP 99.2; O2SAT 99
[2016-05-31] MEDS: INSULIN ASPART SUPPLEMENTAL SCALE SQ SCH ×2 (06:03→11:00)
--- NOTE | 2016-05-31 08:01 | HHI.PR ---
Subjective Remarks Follow up complicated UTI, fevers, hematuria. Patient states that dysuria has improved, on a pain scale of 1-10, he states a 2. He does say that his stream during urination has improved as well. Denies any fever, chills, n/v or further hematuria. Patient denies any new acute medical complaints. Objective Vitals Vital Signs Date Time Temp Pulse Resp B/P Pulse Ox O2 Delivery O2 Flow Rate FiO2 05/31/16 04:44 99.2 63 18 163/77 99 05/31/16 00:50 98.5 56 20 156/71 99 05/30/16 19:41 98.4 60 20 154/73 93 05/30/16 14:13 97.4 60 20 144/70 98 05/30/16 11:45 97.9 55 20 151/74 99 I/O 05/30/16 05/30/16 05/30/16 05/31/16 05/31/16 05/31/16 07:00 15:00 23:00 07:00 15:00 23:00 Intake Total 1880 ml Balance 1880 ml Intake Oral 1080 ml IV Total 800 ml # Voids 4 Result Diagram: 05/30/16 0357 05/30/16 0357 Imaging Last Impressions Chest X-Ray 05/27/161999 Signed Impressions: Service Date/Time: Friday, May 27, 2016 20:08 - CONCLUSION: No acute disease. Mir Suarez MD FACR Pelvis CT 05/27/16 0000 Signed Impressions: Service Date/Time: Saturday, May 28, 2016 00:32 - CONCLUSION: 1. Diverticulosis without diverticulitis. 2. Penile prosthesis. 3. Umbilical hernia containing loops of small bowel without fundus regulation or obstruction. Naseem Gutiérrez MD Objective Remarks GENERAL: Well-nourished, well-developed patient in NAD. SKIN: Warm and dry. No rash. HEENT: Normocephalic. Atraumatic. Pupils equal and round. Mucous membranes pink and moist. NECK: Supple. Trachea midline. CARDIOVASCULAR: Regular rate and rhythm. S1, S2 noted. No murmur appreciated. RESPIRATORY: No accessory muscle use. Clear to auscultation. Breath sounds equal bilaterally. GASTROINTESTINAL: Abdomen soft, non-tender, nondistended. Normoactive bowel sounds x4. GENITOURINARY: internal artificial sphincter device in place. MUSCULOSKELETAL: No obvious deformities. Extremities without clubbing, cyanosis , or edema. NEUROLOGICAL: Awake and alert. No obvious cranial nerve deficits. Motor grossly within normal limits. 5/5 muscle strength in bilateral upper and lower extremities. Normal speech. PSYCHIATRIC: Appropriate mood and affect; insight and judgment normal. Urinary Catheter: No Vascular Central Line Catheter: No A/P Problem List: (1) Urinary tract infection ICD Code: N39.0 Status: Acute Assessment and Plan 76-year-old male with history of diabetes, hypertension, CKD, GERD, CAD with stent, prostate cancer s/p prostatectomy, lymph node resection, artificial sphincter placement, presents with dysuria, fever 1 week and hematuria. Sepsis secondary to Complicated UTI: +leukocytosis WBC 13.4K, tachycardia HR 90s , with MICHELLE and artificial sphincter placed 03/[address] Carlin, then activated , patient was doing well for 1 week, then developed fevers and retention. Continue IV Zosyn. Urine culture with gram positive davonte. Blood cultures with NGTD. Urologist Dr. Carlin following. Infectious disease consulted for outpatient antibiotic recommendations. WBCs now 7.8K. Afebrile > 24 hours. Urinary Retention: Patient with improved pain during urination, with better flow last evening and this morning. Artificial sphincter still deactivated. Urology on board as above. Dr. Carlin considering possible cystoscopy in the outpatient setting. Acute kidney injury on chronic kidney disease stage III, resolved: likely secondary to urinary retention with device. Given IVF. Renal function improving , Cr 1.26. Avoid nephrotoxins. Hematuria: UA with small occult blood. Currently hematuria resolved. Monitor. Diabetes mellitus: Continue Accu-Cheks and cover with SSI. Continue patient's glipizide. Blood glucose well controlled. Hypertension: Continue Losartan for hypertension which seems to be stable. Microcytic anemia: iron studies consistent with iron deficiency. Monitor hemoglobin, dropped from 12.4 --> 10.2, likely hemodilutional with IVF. Hemoccult negative. CBC stable. DVT Prophylaxis: SCDs Written by Marisa Lock, acting as scribe for Dr. Leach on 05/31/16 at 0950. Discharge Planning Spoke with Raegan this am regarding his plan for discharge planning and outpatient follow up. Discharge patient to home Condition on discharge: Improved Heart healthy diet Ad Marla activity, as tolerated Rx written: Levaquin 500 mg by mouth daily fourteen days Follow-up with Dr. Carlin this afternoon on 05/31. Follow-up with PCP in 3-5 days. Problem Qualifiers (1) Urinary tract infection: Qualified Code: N39.0 - Urinary tract infection without hematuria, site unspecified Marisa Lock May 31, 2016 8:01 am
[2016-05-31 08:06] VITALS: BP 178/83; PULSE 54; RESP 18; TEMP 96; O2SAT 96
[2016-05-31] MEDS: LOSARTAN 25 MG TAB PO SCH (08:15)
[2016-05-31] MEDS: glipiZIDE 5 MG TAB PO SCH (08:15)
[2016-05-31] MEDS: SODIUM CHLORIDE 0.9% FLUSH 10 ML FLUSH IV FLUSH SCH (08:16)
[2016-05-31] MEDS ORDERED: LEVOFLOXACIN 500 MG TAB PO SCH (09:00)
--- NOTE | 2016-05-31 09:37 | HHI.DS ---
Discharge Summary Admission Date May 30, 2016 at 15:00 Discharge Date: May 31, 2016 Admitting Diagnosis Post op infection, sepsis (1) Urinary tract infection ICD Code: N39.0 Diagnosis: Principal (2) Urinary retention ICD Code: R33.9 Diagnosis: Principal (3) Sepsis ICD Code: A41.9 Diagnosis: Principal (4) DM (diabetes mellitus) ICD Code: E11.9 Diagnosis: Secondary Procedures none Brief History - From Admission History from patient, your physician for medication, and review of medical records. Patient reported that he came to the hospital because he was having fever for past one week. States he was also seen blood in his urine. He reports a urinary burning as well. Denies any cough/upper respiratory symptoms. Denies any nausea/vomiting/diarrhea/black stools or red stool. Denies any recent chest pain/shortness of breath/syncopal episodes. Patient reports that he has had prostatectomy previously for prostate cancer and had artificial sphincter placed on March 25, 2016. He reports this artificial sphincter was activated 2 weeks ago. He is a diabetic. He states the first week, he was quite asymptomatic. Only starting the second week he started having fever and urinary burning. He saw his urologist office today and was told to come to the hospital for suspected postop infection. CBC/BMP: 05/30/16 0357 05/30/16 0357 Significant Findings Laboratory Tests Test 05/29/16 05/29/16 05/30/16 05:16 16:25 03:57 Red Blood Count 4.26 MIL/MM3 4.30 MIL/MM3 (4.50-5.90) (4.50-5.90) Hemoglobin 10.2 GM/DL 10.4 GM/DL (13.0-17.0) (13.0-17.0) Hematocrit 30.8 % 31.3 % (39.0-51.0) (39.0-51.0) Mean Corpuscular Volume 72.4 FL 72.8 FL (80.0-100.0) (80.0-100.0) Mean Corpuscular Hemoglobin 24.1 PG 24.1 PG (27.0-34.0) (27.0-34.0) Monocytes (%) (Auto) 12.8 % 10.6 % (0.0-8.0) (0.0-8.0) Eosinophils (%) (Auto) 5.5 % (0.0-4.0) 5.2 % (0.0-4.0) Ovalocytes 1+ (NORMAL) 1+ (NORMAL) Blood Urea Nitrogen 21 MG/DL (7-18) Creatinine 1.38 MG/DL (0.60-1.30) Estimat Glomerular Filtration 50 ML/MIN (>89) 56 ML/MIN (>89) Rate Random Glucose 126 MG/DL 123 MG/DL (74-106) (74-106) Calcium Level 8.3 MG/DL 8.2 MG/DL (8.5-10.1) (8.5-10.1) Phosphorus Level 2.1 MG/DL (2.5-4.9) Iron Level 19 MCG/DL (65-175) Percent Iron Saturation 6.1 % (20-50) Albumin 2.7 GM/DL (3.4-5.0) Urine Protein 30 mg/dL (NEG-TRACE) Urine Glucose (UA) 150 mg/dL (NEG) Urine Leukocyte Esterase TRACE (NEG) Urine WBC 7 /hpf (0-5) Urine Bacteria RARE /hpf (NONE) Urine Mucus FEW /lpf (OCC) Chloride Level 110 MEQ/L (98-107) Imaging Last Impressions Chest X-Ray 05/27/161999 Signed Impressions: Service Date/Time: Friday, May 27, 2016 20:08 - CONCLUSION: No acute disease. Mir Suarez MD FACR Pelvis CT 05/27/16 0000 Signed Impressions: Service Date/Time: Saturday, May 28, 2016 00:32 - CONCLUSION: 1. Diverticulosis without diverticulitis. 2. Penile prosthesis. 3. Umbilical hernia containing loops of small bowel without fundus regulation or obstruction. Naseem Gutiérrez MD PE at Discharge GENERAL: Well-nourished, well-developed patient in NAD. SKIN: Warm and dry. No rash. HEENT: Normocephalic. Atraumatic. Pupils equal and round. Mucous membranes pink and moist. NECK: Supple. Trachea midline. CARDIOVASCULAR: Regular rate and rhythm. S1, S2 noted. No murmur appreciated. RESPIRATORY: No accessory muscle use. Clear to auscultation. Breath sounds equal bilaterally. GASTROINTESTINAL: Abdomen soft, non-tender, nondistended. Normoactive bowel sounds x4. GENITOURINARY: internal artificial sphincter device in place. MUSCULOSKELETAL: No obvious deformities. Extremities without clubbing, cyanosis , or edema. NEUROLOGICAL: Awake and alert. No obvious cranial nerve deficits. Motor grossly within normal limits. 5/5 muscle strength in bilateral upper and lower extremities. Normal speech. PSYCHIATRIC: Appropriate mood and affect; insight and judgment normal. Pt update on day of discharge Discussed with Dr. Carlin. He is discuss with ID who recommends keeping the patient on oral Levaquin. Dr. Carlin recommends that the patient follow-up in his office today for further care for urinary retention and pain. We will discharged home in stable condition on oral Levaquin. Hospital Course 76-year-old male with history of diabetes, hypertension, CKD, GERD, CAD with stent, prostate cancer s/p prostatectomy, lymph node resection, artificial sphincter placement, presents with dysuria, fever 1 week and hematuria. Sepsis secondary to Complicated UTI: +leukocytosis WBC 13.4K, tachycardia HR 90s , with MICHELLE and artificial sphincter placed 03/[address] Carlin, then activated , patient was doing well for 1 week, then developed fevers and retention. Urine culture with gram positive davonte. Blood cultures with NGTD. Fevers resolved. WBC decreased to normal limits. Received IV Zosyn, IV consulted, continue on oral Levaquin at ID. Urologist Dr. Carlin following, will continue to follow as outpatient. Urinary Retention: Patient with improved pain during urination, with better flow last evening and this morning. Artificial sphincter still deactivated. Urology on board as above. Dr. Carlin considering possible cystoscopy in the outpatient setting. Acute kidney injury on chronic kidney disease stage III, resolved: likely secondary to urinary retention with device. Given IVF. Renal function improved, Cr 1.26. Pt Condition on Discharge: Stable Discharge Disposition: Discharge Home Discharge Time: > 30 minutes Discharge Instructions DIET: Follow Instructions for: Diabetic Diet Activities you can perform: Regular-No Restrictions Follow up Referrals: PCP Follow-up - 3-5 Days with [facility] - 3-5 Days with Bishop Carlin MD New Medications: Levofloxacin (Levaquin) 500 Mg Tab 500 MG PO DAILY Infection #14 TAB Continued Medications: Aspirin (Aspirin Low Dose) 81 Mg Chew 81 MG DAILY Ref 0 TAB Glipizide (Glipizide) 5 Mg Tab 2.5 MG PO DAILY Take 30 minutes before a meal Blood Sugar Management Ref 0 TAB Losartan (Cozaar) 25 Mg Tab 25 MG PO DAILY Blood Pressure Management Ref 0 TAB Metformin (Metformin) 500 Mg Tab 500 MG PO BIDPC With meals Blood Sugar Management Ref 0 TAB Rosuvastatin (Crestor) 20 Mg Tab 20 MG PO HS Cholesterol Management Ref 0 TAB Lucas Freitas May 31, 2016 09:37
[2016-05-31] MEDS ORDERED: LEVA500T PO (09:38)
== END 2016-05-31 12:43 | disposition home or self-care (01) | DRG 872 ==
LOC: NEPC 17:37 → NEDA 21:59 → INTOOBSV 21:59 → NEPFCDU 23:54 → OBSVTOIN 05-30 15:00
PROVIDERS: ADMIT Family Medicine; ATTEND Family Medicine
DX: A41.9 Sepsis, unspecified organism (principal); N17.9 Acute kidney failure, unspecified; N39.0 Urinary tract infection, site not specified; E11.9 Type 2 diabetes mellitus without complications; Z79.84 Long term (current) use of oral hypoglycemic drugs; I12.9 Hypertensive chronic kidney disease with stage 1 through stage 4 chronic kidney disease, or unspecified chronic kidney disease; N18.3 Chronic kidney disease, stage 3 (moderate); D50.9 Iron deficiency anemia, unspecified; R33.9 Retention of urine, unspecified; R50.82 Postprocedural fever; Z98.890 Other specified postprocedural states; Z96.0 Presence of urogenital implants; Z90.79 Acquired absence of other genital organ(s); Z85.46 Personal history of malignant neoplasm of prostate; Z92.3 Personal history of irradiation; I25.10 Atherosclerotic heart disease of native coronary artery without angina pectoris; Z95.5 Presence of coronary angioplasty implant and graft; Z79.82 Long term (current) use of aspirin; K21.9 Gastro-esophageal reflux disease without esophagitis; R31.9 Hematuria, unspecified; Z98.1 Arthrodesis status; Z87.891 Personal history of nicotine dependence
CPT/HCPCS: 71010; 72192; 80048; 80053; 81001; 82272; 82728; 82948; 83540; 83550; 83605; 83690; 83735; 84100; 85007; 85025; 85027; 85610; 85730; 86140; 86850; 86900; 86901; 87040; 87086; 93005; 96365; G0378; J1815; J2543; J3370; J7030; J7040; J7050; Q9963

== ENCOUNTER → 2017-01-23 | Day surgery (SDC) | payer OTHER, BC ==
[~2017-01-23] MED LIST: ASPI81CH6; BUPIVACAINE/EPINEPHRINE 0.25% PF 30 ML VIAL ONE; COZA25TA PO; GLIP5TAB8 PO; KETOROLAC TROMETHAMINE 30 MG/ML (IVP) VIAL IV PUSH ONE; LEVA500T PO; MEPERIDINE HCL 50 MG/ML VIAL ONE; METF500T PO; MIDAZOLAM HCL 2 MG/2 ML VIAL ONE; ONDANSETRON HCL 4 MG/2 ML VIAL IV PUSH ONE; PROPOFOL 200 MG/20 ML AMP IV ONE; ROSU20 PO; SODIUM CHLOR 0.9% 1000 ML BAG IV ONE; ceFAZolin 2 GM PREMIX 50 ML ONE; oxyCODONE/ACETAMINOPHEN 5 MG/325 MG TAB ONE
--- NOTE | 2017-01-23 17:38 | TN ---
cc: SABRINA COLVIN MD DATE OF SURGERY 01/23/17 PREOPERATIVE DIAGNOSIS Incisional hernia POSTOPERATIVE DIAGNOSIS Incisional hernia PROCEDURE Laparoscopic incisional hernia repair with mesh SURGEON Rosita Colvin MD MUSIC SPECIALIST [facility] ANESTHESIA GETA IV FLUIDS See anesthesia sheet. ESTIMATED BLOOD LOSS 5 mL DRAINS None. COMPLICATIONS None. WOUND CLASSIFICATION Clean SPECIMEN None. INDICATIONS The patient is a 76 year old male who presented with umbilical hernia. He has had several abdominal procedures from which developed this hernia several months ago and continued to get worse. Decision was made for operative intervention including laparoscopic repair. I discussed with patient in detail. PROCEDURE IN DETAIL The patient was taken to the operating suite, placed in supine position. He was prepped and draped in the usual sterile fashion after induction of general endotracheal anesthesia. Brief timeout done stating correct patient, procedure, surgical site and all were in agreement with this. Attention was directed to the left upper quadrant where a local anesthetic was injected. A 5 mm Visiport was used with camera to enter the abdomen safely. Abdomen insufflated to 50 mmHg pneumoperitoneum. On inspection, no evidence of injury. Two other ports placed, two 5 mm in left lower quadrant and a 5 mm epigastric. The patient then placed in Trendelenburg and monopolar cautery scissors were used to reduce the sac and excise the sac. This was done in its entirety examining the hernias, noted to be somewhat of a double hernia just adjacent to each other on the midline. Hernia defect was noted to be approximately 8 cm x 6 cm. Once the hernia sac was excised, adhesions were taken down inferior to the omentum that was adherent to the abdominal wall inferiorly and then superiorly. A small portion of falciform was taken down as well. The adequate mesh was sized out using a Edwards mesh 15 x 10 cm. Edwards sutures were placed to four points, the 12 o'clock, 3 o'clock, 9 o'clock and 6 o'clock positions and a single Vicryl was placed in the midline. The 5 mm left lower quadrant trocar was upsized to a 12 mm and the mesh was inserted through this into the abdomen. Transfascial sutures were then brought up using a Edwards suture passer device at all four quadrants until the mesh was taut and the mesh set snugly against the abdominal wall. The rough layer was against the peritoneal layer and the smooth layer was to the GI tract. Next, the fascial sutures were fixed in placed. Small dawit incisions were made in order to accommodate these. Next, a capture tacker device was used in a periphery fashion in order to tack the periphery of the mesh to the anterior abdominal wall. Of note, prior to placement the hernia defect was actually closed. This was done with a running #2 Stratifix Quill suture unidirectional suture and was done again to the midline to reapproximate the hernia defect. This was all done laparoscopically. Then the mesh was placed on top of this. Next, abdomen was desufflated after the omentum was just draped down over the small bowel in between the mesh and the bowel and ports were report. 12 mm port was closed with a 0 Vicryl figure of 8 fashion. 4-0 Monocryl was used at the subcuticular sutures to all port sites. Local anesthetic injected at all transfascial closure site and port sites. The patient tolerated the procedure well. There were no intraoperative complications. The patient was extubated, taken stable to post anesthesia care unit. All lap and instrument counts were correct at the end of the procedure. MD DEVIN Pitt/ /5:06 PM /5:14 PM
== END | disposition home or self-care (01) ==
LOC: ESDC 09:32
PROVIDERS: ATTEND Surgery
DX: K43.2 Incisional hernia without obstruction or gangrene (principal)
CPT/HCPCS: 00832; 49654; C1727; C1781; J0690; J1885; J2175; J2250; J2405; J3010; J7030